=== PATIENT | female | born 1995 | race Two or more races ===

== ENCOUNTER → 2025-04-15 12:12 | Outpatient (CLI) | payer OTHER | END | disposition home or self-care (01) | LOC: PRENATAL 12:12 | PROVIDERS: ATTEND Obstetrics & Gynecology Maternal & Fetal Medicine | DX: O44.02 Complete placenta previa NOS or without hemorrhage, second trimester (principal); O34.219 Maternal care for unspecified type scar from previous cesarean delivery; O36.1920 Maternal care for other isoimmunization, second trimester, not applicable or unspecified; Z3A.20 20 weeks gestation of pregnancy ==